=== PATIENT | male | born 1970 | race Caucasian/White ===

== ENCOUNTER 2017-02-26 05:43 | Emergency (ER) | payer MEDICARE, MEDICAID ==
[2017-02-26 05:49] VITALS: BP 144/75
[2017-02-26] MEDS ORDERED: Tetan/Diph/Pertus SYR(Tdap)* 0.5 ML SYR(BOOSTRIX) use SYR IM ONE (06:13)
--- NOTE | 2017-02-26 06:42 | ED ---
Hussain Maldonado SooYoung, scribed for Go Persaud MD on 02/26/17 at 0617 . Laceration/Wound HPI - HPI Summary HPI Summary: A 46 y/o M presents to ED with small lac to his L index finger onset approx 5-6 hours [employer]. Pt states he was moving items, and cut his finger on a sharp edge of a mini-fridge. He was able to get the bleeding under control at the time, but recently the wound reopened. Pt is unsure of when his last tetanus was. - History of Current Complaint Stated Complaint: LT INDEX LAC Hx Obtained From: Patient Onset/Duration: Sudden Onset, Still Present Onset Severity: Mild Current Severity: Mild Pain Intensity: 1 Pain Scale Used: 0-10 Numeric Associated Signs & Symptoms: Pain - mild - Allergy/Home Medications Allergies/Adverse Reactions: Allergies Allergy/AdvReac Type Severity Reaction Status Date / Time No Known Allergies Allergy Verified 10/09/12 10:02 PMH/Surg Hx/FS Hx/Imm Hx Previously Healthy: Yes Endocrine/Hematology History: Denies: Hx Anticoagulant Therapy, Hx Diabetes, Hx Thyroid Disease Cardiovascular History: Denies: Hx Hypertension, Hx Pacemaker/ICD Respiratory History: Denies: Hx Asthma, Hx Chronic Obstructive Pulmonary Disease (COPD) History: Denies: Hx Renal Disease Comment Only: Other Problems/Disorders - OCCASIONAL NERVOUS BLADDER, IRRITABLE BLADDER SYNDROME Sensory History: Reports: Hx Contacts or Glasses - CONTACTS - WILL BRING CASE OR GLASSES Denies: Hx Hearing Aid Opthamlomology History: Reports: Hx Contacts or Glasses - CONTACTS - WILL BRING CASE OR GLASSES Neurological History: Denies: Hx Dementia, Hx Seizures Psychiatric History: Denies: Hx Substance Abuse - Surgical History Surgery Procedure, Year, and Place: 2007 ORAL SURGERY TO REMOVE BENIGH CYST FROM GUM, OFFICE Hx Anesthesia Reactions: No Infectious Disease History: No Infectious Disease History: Denies: Hx Hepatitis, Hx Human Immunodeficiency Virus (HIV), Traveled Outside the [place] in Last 30 Days - Social History Occupation: Employed Full-time - [employer] Lives: Alone Alcohol Use: Rare Substance Use Type: Reports: None Smoking Status (MU): Former Smoker Review of Systems Negative: Fever Positive: Other - pos: small lac to L index finger All Other Systems Reviewed And Are Negative: Yes Physical Exam Triage Information Reviewed: Yes Vital Signs On Initial Exam: Initial Vitals Temp Pulse Resp BP Pulse Ox 98.6 F 60 18 144/75 100 02/26/17 05:46 02/26/17 05:46 02/26/17 05:46 02/26/17 05:46 02/26/17 05:46 Vital Signs Reviewed: Yes Appearance: Positive: Well-Appearing, No Pain Distress Skin: Positive: Warm Head/Face: Positive: Normal Head/Face Inspection Eyes: Positive: DEYANIRA ENT: Positive: Hearing grossly normal Respiratory/Lung Sounds: Positive: Breath Sounds Present Musculoskeletal: Positive: Other - distal lt index finger 1 cm sup lac Neurological: Positive: Sensory/Motor Intact, Alert, Oriented to Person Place, Time Procedures - Laceration/Wound Repair 1 Location: upper extremity Description: Linear Laceration/Wound Explored: clean Closure: SteriStrips Sterile Dressing Applied?: Yes Diagnostics - Vital Signs Vital Signs Temp Pulse Resp BP Pulse Ox 02/26/17 05:46 98.6 F 60 18 144/75 100 - Laboratory Lab Statement: Any lab studies that have been ordered have been reviewed, and results considered in the medical decision making process. Laceration Repair Course/Dx - Course Course Of Treatment: Pt is a 46 y/o M presenting with a small lac to his L index finger onset approx 5-6 hours [employer]. Cut his finger on a sharp edge of a mini-fridge. Pt is unsure of when his last tetanus was. Pt given tetanus shot in ED. - Clinical Impression Provider Diagnoses: Finger laceration Discharge - Discharge Plan Condition: Improved Disposition: HOME Patient Education Materials: Finger Laceration (ED), Steristrips (ED) Referrals: Suman Javier MD [Primary Care Provider] - The documentation as recorded by the Hussain driscoll SooYoung accurately reflects the service I personally performed and the decisions made by , Go Persaud MD.
== END 2017-02-26 06:39 | disposition home or self-care (01) ==
LOC: ED 05:43
DX: S61.211A Laceration without foreign body of left index finger without damage to nail, initial encounter (principal); Z87.891 Personal history of nicotine dependence; W26.8XXA Contact with other sharp object(s), not elsewhere classified, initial encounter; Y93.89 Activity, other specified; Y92.9 Unspecified place or not applicable
CPT/HCPCS: 90471; 90715; 99282

== ENCOUNTER 2019-06-08 18:55 | Emergency (ER) | payer MEDICARE, MEDICAID ==
--- NOTE | 2019-06-08 19:26 | ED ---
Respiratory - HPI Summary HPI Summary: The pt is a 48 yr old male presenting to [facility] [place] c/o difficulty breathing while sleeping beginning 1 day [employer]. He states that he was dreaming last night and was walking around in this dream while having difficulty breathing. He felt that his airway was constricted during the dream and notes that he had some trouble breathing right after waking up. He notes that his throat cleared after waking up but does not remember if it cleared during the dream or after waking up. During the day today he went to his job normally and did not experience any SOB. He mentions that he is anxious about falling asleep tonight and is afraid that he may " of sleep apnea". He also denies coughing, difficulty breathing today, or recent illness. Pain severity is rated a 0/10. No aggravating or alleviating factors noted. Home Medications Medication Instructions Recorded Confirmed Type NK [No Home Medications Reported] 09/05/12 10/09/12 History - History of Current Complaint Chief Complaint: EDRespiratoryDistress Stated Complaint: DIFF SLEEPING PER PT Time Seen by Provider: 06/08/19 19:22 Hx Obtained From: Patient Onset/Duration: Sudden Onset, Lasting Minutes, Lasting Days, Resolved Initial Severity: Mild Current Severity: None Pain Intensity: 0 Character: Dyspnea at Rest Aggravating Factor(s): Nothing Alleviating Factor(s): Nothing Associated Signs and Symptoms: Negative - cough, SOB - Allergy/Home Medications Allergies/Adverse Reactions: Allergies Allergy/AdvReac Type Severity Reaction Status Date / Time No Known Allergies Allergy Verified 10/09/12 10:02 PMH/Surg Hx/FS Hx/Imm Hx Endocrine/Hematology History: Denies: Hx Anticoagulant Therapy, Hx Diabetes, Hx Thyroid Disease Cardiovascular History: Denies: Hx Hypertension, Hx Pacemaker/ICD Respiratory History: Denies: Hx Asthma, Hx Chronic Obstructive Pulmonary Disease (COPD) History: Denies: Hx Renal Disease Comment Only: Other Problems/Disorders - OCCASIONAL NERVOUS BLADDER, IRRITABLE BLADDER SYNDROME Sensory History: Reports: Hx Contacts or Glasses - CONTACTS - WILL BRING CASE OR GLASSES Denies: Hx Hearing Aid Opthamlomology History: Reports: Hx Contacts or Glasses - CONTACTS - WILL BRING CASE OR GLASSES Neurological History: Denies: Hx Dementia, Hx Seizures Psychiatric History: Denies: Hx Substance Abuse - Surgical History Surgery Procedure, Year, and Place: 2007 ORAL SURGERY TO REMOVE BENIGH CYST FROM GUM, OFFICE Hx Anesthesia Reactions: No Infectious Disease History: No Infectious Disease History: Denies: Hx Hepatitis, Hx Human Immunodeficiency Virus (HIV), Traveled Outside the [place] in Last 30 Days - Family History Known Family History: Negative: Renal Disease - Social History Alcohol Use: Rare Substance Use Type: Reports: None Smoking Status (MU): Former Smoker Review of Systems Positive: Shortness Of Breath. Negative: Cough Positive: Anxious - about falling asleep tonight All Other Systems Reviewed And Are Negative: Yes Physical Exam - Summary Physical Exam Summary: Appearance: Well-appearing, Well-nourished, lying in bed comfortable Skin: Warm, dry, no obvious rash Eyes: sclera anicteric, no conjunctival pallor ENT: mucous membranes moist Neck: deferred Respiratory: No signs of respiratory distress Cardiovascular: Appears well perfused, pulses are nml Abdomen: deferred Musculoskeletal: Moving all 4 extremities without obvious discomfort Neurological: Awake and alert, mentation is normal, speech is fluent and appropriate Psychiatric: affect is normal, does not appear anxious or depressed Triage Information Reviewed: Yes Vital Signs On Initial Exam: Initial Vitals Temp Pulse Resp BP Pulse Ox 97.8 F 72 16 133/83 98 06/08/19 18:57 06/08/19 18:57 06/08/19 18:57 06/08/19 18:57 06/08/19 18:57 Vital Signs Reviewed: Yes Diagnostics - Vital Signs Vital Signs Temp Pulse Resp BP Pulse Ox 06/08/19 18:57 97.8 F 72 16 133/83 98 - Laboratory Lab Statement: Any lab studies that have been ordered have been reviewed, and results considered in the medical decision making process. Disposition - Course Course Of Treatment: The pt is a 48 yr old male presenting to [facility] c/o difficulty breathing while sleeping beginning 1 day [employer]. He states that he was dreaming last night and was walking around in this dream while having difficulty breathing. He also reports feelings of anxiety to fall asleep but denies any SOB during the day today, coughing, or recent illness. No test results or imaging to report. Final Dx is Parasomnia. The pt will be discharged home with PCP follow up. Pt is agreeable with this plan. - Diagnoses Provider Diagnoses: Parasomnia Discharge ED - Sign-Out/Discharge Documenting (check all that apply): Patient Departure - discharge Patient Received Moderate/Deep Sedation with Procedure: No - Discharge Plan Condition: Stable Disposition: HOME Referrals: Suman Javier MD [Primary Care Provider] - Additional Instructions: I think what you suffered is called a parasomnia, which is a disruption in sleep that can manifest in many different ways. That you have not had any respiratory symptoms either preceding or since speaks very well to the idea that it is limited to your sleep, and not an anatomic issue in your airway. - Billing Disposition and Condition Condition: STABLE Disposition: Home - Attestation Statements Document Initiated by Tunde: Yes Documenting Scribe: Flakito Medrano Provider For Whom Tunde is Documenting (Include Credential): Eliot Monk MD Scribe Attestation: I, Flakito Medrano, scribed for Eliot Monk MD on 06/09/19 at 0503. Scribe Documentation Reviewed: Yes Provider Attestation: The documentation as recorded by the Flakito driscoll accurately reflects the service I personally performed and the decisions made by me, Eliot Monk MD Status of Scribe Document: Viewed
[2019-06-08 19:58] VITALS: BP 122/85
== END 2019-06-08 19:57 | disposition home or self-care (01) ==
LOC: ED 18:55
DX: G47.50 Parasomnia, unspecified (principal); Z87.891 Personal history of nicotine dependence
CPT/HCPCS: 99284